=== PATIENT | male | born 1985 | race Caucasian/White ===

== ENCOUNTER 2017-01-21 10:05 | Emergency (ER) | payer MEDICAID ==
[2017-01-21 10:52] LABS: % IMMATURE GRANULYOCYTES 0.4 % (0.0-1.1); ABSOLUTE IMMATURE GRANULOCYTES 0.04 10^3/uL (0.00-0.10); ADD DIFF? NO; ADD MORPH? NO; ADD SCAN? NO; ATYPICAL LYMPHOCYTE FLAG 10 (0-99); FRAGMENT RBC FLAG 0 (0-99); HEMOGLOBIN 16.9 g/dL (13.7-17.5); LEFT SHIFT FLG 0 (0-99); LIPEMIA HEMOLYSIS FLAG 90 (0-99); MEAN CELL HEMOGLOBIN 30.3 pg (27.9-34.1); MEAN CELL HEMOGLOBIN CONCENTR. 34.5 g/dL (32.4-36.7); PLATELET CLUMPS FLAG 0 (0-99); PLATELET COUNT 307 10^3/uL (150-400); RED BLOOD CELL COUNT 5.57 10^6/uL (4.40-6.38); RED CELL DISTRIBUTION WIDTH 13.3 % (11.5-15.2)
--- NOTE | 2017-01-21 10:55 | EDPHY ---
H & P Smoking Status: Unknown if ever smoked Time Seen by Provider: 01/21/17 10:25 HPI/ROS: CHIEF COMPLAINT: M1 hold HISTORY OF PRESENT ILLNESS: 31-year-old male presents to the emergency department on M1 hold acting paranoid and delusional. The patient has a history of bipolar and schizophrenia. He states that he has been taking his medications when he remembers. He does admit to using cocaine to the nurse. He states this morning he woke up and "no one was around ankle. He states that he got very nervous for his family. He states that he has not been sleeping well. Currently has no physical complaints. No chest pain or difficulty breathing. No abdominal pain. He denies suicidal or homicidal ideation. He denies alcohol abuse. REVIEW OF SYSTEMS: Constitutional: No fever, no chills. Eyes: No double or blurry vision. ENT: No sore throat. Respiratory: No cough, no shortness of breath. Cardiac: No chest pain. Gastrointestinal: No abdominal pain, vomiting or diarrhea. Genitourinary: No dysuria. Musculoskeletal: No neck or back pain. Skin: No rashes. Neurological: No headache. (Katherin Umana) Past Medical/Surgical History: Bipolar, schizophrenia, substance abuse (Katherin Umana) Social History: Single (Katherin Umana) Physical Exam: General Appearance: Alert, no distress. Eyes: Pupils equal and round. Extraocular motions are all intact. ENT: Mouth: Mucous membranes moist. Respiratory: No wheezing, rhonchi, or rales, lungs are clear to auscultation. Cardiovascular: Regular rate and rhythm. Gastrointestinal: Abdomen is soft and nontender, no masses, no rebound or guarding, bowel sounds normal. Neurological: Alert and oriented x [address], cranial nerves II through XII grossly intact Skin: Warm and dry, no rashes. Musculoskeletal: Nontender to palpate along the cervical, thoracic or lumbar spine. Neck is supple. Extremities: Full range of motion and no peripheral edema. Psychiatric: no agitation. (Katherin Umana M) Constitutional: Initial Vital Signs Temperature (C) 36.3 C 01/21/17 10:32 Heart Rate 111 H 01/21/17 10:32 Respiratory Rate 16 01/21/17 10:32 Blood Pressure 104/94 H 01/21/17 10:32 O2 Sat (%) 97 01/21/17 10:32 O2 Delivery Mode Room Air O2 (L/minute) 95 Allergies/Adverse Reactions: No Known Allergies Allergy (Unverified 01/21/17 16:02) Home Medications: Medication Instructions Recorded Clozapine 100 mg Q12 01/21/17 Colace 100 mg DAILY AT 10AM 01/21/17 Latuda 80 mg DAILY AT 10AM 01/21/17 [place] Carbonate 400 mg HS 01/21/17 traZODone 50 mg HS 01/21/17 Medical Decision Making ED Course/Re-evaluation: 31-year-old male presents to the emergency department on . He has a history of bipolar and schizophrenia. He apparently did not show up to his scheduled appointment with [facility] on January 12. They feel that he likely ran out of his medications or has not been taking them. He has been evaluated by mental health and they think that they will likely be looking for inpatient placement. (Katherin Umana) Differential Diagnosis: Depression including functional and major depression, situational depression, medication side effect, drugs and alcohol abuse. (Katherin Umana) Other Provider: I assumed care of the patient at 5pm pending psychiatric disposition. Update at 6:00 p.m.: The patient was evaluated by Psychiatry. They are attempting to arrange for inpatient psychiatric hospitalization. Update at 10:00 p.m.: The patient has been accepted for inpatient psychiatric hospitalization at [facility] by Dr. Javed. I have filled out the [facility] transfer paperwork. (Chris Stevens) - Data Points Laboratory Results: Laboratory Results 01/21/17 10:21 01/21/17 10:21 01/21/17 01/21/17 01/21/17 11:05 10:21 10:21 WBC RBC Hgb Hct MCV MCH MCHC RDW Plt Count MPV Neut % (Auto) Lymph % (Auto) [place] % (Auto) Eos % (Auto) Baso % (Auto) Nucleat RBC Rel Count Absolute Neuts (auto) Absolute Lymphs (auto) Absolute Monos (auto) Absolute Eos (auto) Absolute Basos (auto) Absolute Nucleated RBC Immature Gran % Immature Gran # Sodium 142 mEq/L mEq/L (134-144) Potassium 3.5 mEq/L mEq/L (3.5-5.2) Chloride 100 mEq/L mEq/L (97-110) Carbon Dioxide 26 mEq/l mEq/l (22-31) Anion Gap 16 mEq/L mEq/L (8-16) BUN 10 mg/dL mg/dL (7-23) Creatinine 0.9 mg/dL mg/dL (0.7-1.3) Estimated GFR > 60 Glucose 131 mg/dL H mg/dL (70-100) Calcium 10.3 mg/dL mg/dL (8.5-10.4) TSH 1.010 uIU/mL uIU/mL (0.465-4.680) Urine Opiates Screen NEGATIVE (NEGATIVE) Urine Barbiturates NEGATIVE (NEGATIVE) Ur Phencyclidine Scrn NEGATIVE (NEGATIVE) Ur Amphetamine Screen NEGATIVE (NEGATIVE) U Benzodiazepines Scrn NEGATIVE (NEGATIVE) [place] 0.7 mEq/L mEq/L (0.6-1.2) Urine Cocaine Screen NEGATIVE (NEGATIVE) U Marijuana (THC) Screen NEGATIVE (NEGATIVE) Ethyl Alcohol < 10 mg/dL mg/dL (0-10) 01/21/17 10:21 WBC 10.26 10^3/uL H 10^3/uL (3.80-9.50) RBC 5.57 10^6/uL 10^6/uL (4.40-6.38) Hgb 16.9 g/dL g/dL (13.7-17.5) Hct 49.0 % % (40.0-51.0) MCV 88.0 fL fL (81.5-99.8) MCH 30.3 pg pg (27.9-34.1) MCHC 34.5 g/dL g/dL (32.4-36.7) RDW 13.3 % % (11.5-15.2) Plt Count 307 10^3/uL 10^3/uL (150-400) MPV 10.0 fL fL (8.7-11.7) Neut % (Auto) 76.0 % H % (39.3-74.2) Lymph % (Auto) 14.2 % L % (15.0-45.0) [place] % (Auto) 8.5 % % (4.5-13.0) Eos % (Auto) 0.5 % L % (0.6-7.6) Baso % (Auto) 0.4 % % (0.3-1.7) Nucleat RBC Rel Count 0.0 % % (0.0-0.2) Absolute Neuts (auto) 7.80 10^3/uL H 10^3/uL (1.70-6.50) Absolute Lymphs (auto) 1.46 10^3/uL 10^3/uL (1.00-3.00) Absolute Monos (auto) 0.87 10^3/uL H 10^3/uL (0.30-0.80) Absolute Eos (auto) 0.05 10^3/uL 10^3/uL (0.03-0.40) Absolute Basos (auto) 0.04 10^3/uL 10^3/uL (0.02-0.10) Absolute Nucleated RBC 0.00 10^3/uL 10^3/uL (0-0.01) Immature Gran % 0.4 % % (0.0-1.1) Immature Gran # 0.04 10^3/uL 10^3/uL (0.00-0.10) Sodium Potassium Chloride Carbon Dioxide Anion Gap BUN Creatinine Estimated GFR Glucose Calcium TSH Urine Opiates Screen Urine Barbiturates Ur Phencyclidine Scrn Ur Amphetamine Screen U Benzodiazepines Scrn [place] Urine Cocaine Screen U Marijuana (THC) Screen Ethyl Alcohol Medications Given: Discontinued Medications Clozapine (Clozaril) 100 mg PO EDNOW ONE Stop: 01/21/17 21:04 Last Admin: 01/21/17 21:48 Dose: 100 mg [place] Carbonate ([place] Carbonate) 400 mg PO EDNOW ONE Stop: 01/21/17 21:02 Last Admin: 01/21/17 21:47 Dose: 400 mg Nicotine (Nicoderm Cq) 21 mg TD EDNOW ONE Stop: 01/21/17 12:38 Last Admin: 01/21/17 12:41 Dose: 21 mg Trazodone HCl (Trazodone) 50 mg PO EDNOW ONE Stop: 01/21/17 21:02 Last Admin: 01/21/17 21:48 Dose: 50 mg Departure - Departure Disposition: [facility] IP Clinical Impression: Bipolar 1 disorder Schizophrenia Qualifiers: Schizophrenia type: unspecified Qualified Code(s): F20.9 - Schizophrenia, unspecified Condition: Good Referrals: Patient,NotPresent [Primary Care Provider] - As per Instructions
[2017-01-21 11:20] LABS: ANION GAP 16 mEq/L (8-16); CALCIUM 10.3 mg/dL (8.5-10.4); CARBON DIOXIDE 26 mEq/l (22-31); CHLORIDE 100 mEq/L (97-110); CREATININE 0.9 mg/dL (0.7-1.3); ETHANOL SERUM < 10 mg/dL (0-10); GLOMERULAR FILTRATION RATE > 60; GLUCOSE 131 mg/dL (70-100); POTASSIUM 3.5 mEq/L (3.5-5.2); SODIUM 142 mEq/L (134-144)
[2017-01-21] MEDS ORDERED: NICOTINE 21 MG/24 HR PATCH TD ONE (12:37)
[2017-01-21 16:10] LABS: LITHIUM 0.7 mEq/L (0.6-1.2)
[2017-01-21] MEDS ORDERED: traZODone 50 MG TAB PO ONE (21:01)
[2017-01-21] MEDS ORDERED: LITHIUM CARBONATE 300 MG TAB PO ONE (21:01)
[2017-01-21] MEDS ORDERED: cloZAPine 100 MG TAB PO ONE (21:03)
[2017-01-21 21:49] VITALS: BP 147/91; PULSE 103; RESP 20; TEMP 97.9; O2SAT 96
[2017-01-22] MEDS ORDERED: cloZAPine 100 MG TAB PO SCH (09:00)
== END 2017-01-21 22:47 ==
LOC: EDUNIT#
DX: F20.9 Schizophrenia, unspecified (principal); F31.9 Bipolar disorder, unspecified
CPT/HCPCS: 80305; G0480